=== PATIENT | male | born 1965 | race American Indian/Alaskan Native ===

== ENCOUNTER 2017-01-28 16:23 | Emergency (ER) | payer OTHER ==
[2017-01-28 16:33] VITALS: BP 147/78; PULSE 70; RESP 16; TEMP 96.8; O2SAT 99
--- NOTE | 2017-01-28 16:48 | ED PDOC ---
HPI: General Adult Time Seen by Provider: 01/28/17 16:39 Chief Complaint (Nursing): Medical Clearance Chief Complaint (Provider): Medical Clearance History Per: Patient History/Exam Limitations: no limitations Onset/Duration Of Symptoms: Hrs Additional Complaint(s): Arslan Crespo, a 51 year old male, who is presently in police custody is brought into the ED for medical/psychiatric clearance. The patient reports chronic heroin use and is now complaining of body pains because he only used once today. Of note: In the ED the patient told the triage nurse that he wants to kill people everyday. Past Medical History Reviewed: Historical Data, Nursing Documentation, Vital Signs Vital Signs: Last Vital Signs Temp 96.8 F L 01/28/17 16:29 Pulse 70 01/28/17 16:29 Resp 16 01/28/17 16:29 BP 147/78 01/28/17 16:29 Pulse Ox 99 01/28/17 18:28 - Medical History PMH: No Chronic Diseases - Surgical History Surgical History: No Surg Hx - Family History Family History: States: Unknown Family Hx - Social History Drugs: Opiates (heroin) - Allergies Allergies/Adverse Reactions: Allergies Allergy/AdvReac Type Severity Reaction Status Date / Time No Known Allergies Allergy Verified 01/28/17 16:29 Review of Systems ROS Statement: Except As Marked, All Systems Reviewed And Found Negative Constitutional: Positive for: Other (medical/psychiatric clearance; body pains) Psych: Negative for: Suicidal ideation Physical Exam - Reviewed Nursing Documentation Reviewed: Yes Vital Signs Reviewed: Yes - Physical Exam Appears: Positive for: Non-toxic, No Acute Distress Eye Exam: Positive for: Normal appearance, EOMI, PERRL. Negative for: Nystagmus Cardiovascular/Chest: Positive for: Regular Rate, Rhythm, Chest Non Tender. Negative for: Tachycardia Respiratory: Positive for: Normal Breath Sounds. Negative for: Rales, Rhonchi, Wheezing, Respiratory Distress Neurologic/Psych: Positive for: Alert (x3), Oriented (x3), Gait. Negative for: Motor/Sensory Deficits - ECG O2 Sat by Pulse Oximetry: 99 (RA) Pulse Ox Interpretation: Normal Medical Decision Making Medical Decision Makin Initial Impression 51 y/o male presenting to the ED for psychiatric and medical clearance Initial Plan: * Crisis Evaluation * Reevaluation 1655 Patient will be signed out to Dr. Hawk pending crisis evaluation. Scribe Attestation: Documented by Mariya Davis, acting as a scribe for Yokasta Danielle MD. Provider Scribe Attestation: All medical record entries made by the Scribe were at my direction and personally dictated by me. I have reviewed the chart and agree that the record accurately reflects my personal performance of the history, physical exam, medical decision making, and the department course for this patient. I have also personally directed, reviewed, and agree with the discharge instructions and disposition. Disposition - Clinical Impression Clinical Impression: Adjustment disorder, Heroin abuse - Patient ED Disposition Is Patient to be Admitted: Transfer of Care - Disposition Referrals: [facility] [Outside] Disposition: Transfer of Care Disposition Time: 17:00 Condition: STABLE Additional Instructions: Patient is medically and psychiatrically cleared for incarceration. Instructions: Narcotic Abuse (ED), Mood Disorders (ED) Patient Signed Over To: Jake Hawk Present On Arrival: None
--- NOTE | 2017-01-28 17:06 | ED PDOC ---
- ECG O2 Sat by Pulse Oximetry: 99 (RA) Pulse Ox Interpretation: Normal Medical Decision Making Medical Decision Making: Patient signed out to provider form Dr. Danielle at 1700 pending crisis evaluation. Patient is cleared by crisis by Dr Wallis for discharge. Scribe Attestation: Documented by Mariya Davis, acting as a scribe for Jake Hawk MD. Provider Scribe Attestation: All medical record entries made by the Scribe were at my direction and personally dictated by me. I have reviewed the chart and agree that the record accurately reflects my personal performance of the history, physical exam, medical decision making, and the department course for this patient. I have also personally directed, reviewed, and agree with the discharge instructions and disposition. Disposition Doctor Will See Patient In The: Office Counseled Patient/Family Regarding: Studies Performed, Diagnosis, Need For Followup - Clinical Impression Clinical Impression: Adjustment disorder, Heroin abuse - POA Present On Arrival: None - Disposition Referrals: [facility] [Outside] Disposition: Routine/Home Disposition Time: 18:26 Condition: GOOD Additional Instructions: Patient is medically and psychiatrically cleared for incarceration. Instructions: Narcotic Abuse (ED), Mood Disorders (ED)
== END 2017-01-28 18:35 | disposition home or self-care (01) ==
LOC: H.ER 16:23
DX: F43.20 Adjustment disorder, unspecified (principal); F11.10 Opioid abuse, uncomplicated; Z02.89 Encounter for other administrative examinations; Z00.8 Encounter for other general examination